=== PATIENT | male | born 1970 | race Caucasian/White ===

== ENCOUNTER 2017-03-01 23:08 | Emergency (ER) | payer OTHER ==
[~2017-03-01] VITALS: Ht 182.9 cm; Wt 131.5 kg
[~2017-03-01 23:08] MED LIST: MULT-506 PO; OXYC-57 PO; VITACAP26 PO
[2017-03-01 23:23] VITALS: TEMP 36.6; Ht 182.9 cm; Wt 131.5 kg
[2017-03-01] MEDS ORDERED: DIAZEPAM 5MG TAB PO STA (23:42)
[2017-03-01] MEDS ORDERED: OXYCODONE HCL IR 5 MG TAB (IMMEDIATE RELEASE) PO STA (23:42)
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
[2017-03-02] MEDS ORDERED: IBUP-103 PO (00:36)
[2017-03-02] MEDS ORDERED: ACET-1256 PO (00:37)
[2017-03-02] MEDS ORDERED: ASCO100061 PO (00:38)
[2017-03-02] MEDS ORDERED: DIAZ-165 PO (01:54)
[2017-03-02] MEDS ORDERED: OXYC1TAB3 PO (01:54)
[2017-03-02] MEDS ORDERED: METH4PAK PO (01:54)
[2017-03-02 02:00] VITALS: BP 124/86; PULSE 82; O2SAT 97
[2017-03-02] MEDS ORDERED: OXYCODONE IR HOME PACK PO ONE (02:00)
--- NOTE | 2017-03-02 06:47 | DIAGNOSTIC IMAGING REPORT ---
RIGHT PELVIS/UNILATERAL HIP 2-3VIEWS CLINICAL HISTORY: Right hip pain. No known trauma. COMPARISON: None FINDINGS: Sacroiliac joints and symphysis pubis are intact. No fracture is identified within the pelvis or the hips. No osseous lesion is identified. Joint spaces for each hip are preserved. There is mild osteophytosis of both hips. There is no evidence for avascular necrosis. IMPRESSION: 1. No acute fracture within the pelvis or hips. 2. Mild osteoarthritis of the hips. Electronically signed by: Myles Snow M.D. 03/02/2017 6:46 AM Dictated Date/Time: 03/02/2017 6:45 AM
--- NOTE | 2017-03-02 06:48 | DIAGNOSTIC IMAGING REPORT ---
LUMBAR SPINE RADIOGRAPHS CLINICAL HISTORY: Right sciatica. COMPARISON: None FINDINGS: Alignment of the lumbar spine is anatomic. There is no acute fracture or suspicious lesion within the lumbar spine. Disc spaces are preserved. There is mild endplate osteophytosis most pronounced at L3-L4. There is mild multilevel facet arthrosis. IMPRESSION: 1. No acute lumbar spine fracture or subluxation. 2. Mild multilevel degenerative disc disease and facet arthrosis of the lumbar spine. Electronically signed by: Myles Snow M.D. 03/02/2017 6:47 AM Dictated Date/Time: 03/02/2017 6:46 AM
== END 2017-03-02 02:00 | disposition home or self-care (01) ==
LOC: C.EDB 23:10 → C.EDC 03-02 02:00
DX: M25.551 Pain in right hip (principal); X58.XXXA Exposure to other specified factors, initial encounter; F17.210 Nicotine dependence, cigarettes, uncomplicated; Z79.899 Other long term (current) drug therapy

== ENCOUNTER → 2017-03-21 | Outpatient (CLI) | payer BC ==
[~2017-03-21] MED LIST changes: +ACET-1256 PO; +ASCO100061 PO; +DIAZ-165 PO; +IBUP-103 PO; -MULT-506 PO; -OXYC-57 PO; +OXYC1TAB3 PO; -VITACAP26 PO
--- NOTE | 2017-03-21 15:09 | DIAGNOSTIC IMAGING REPORT ---
LUMBAR SPINE W/O CONTRAST CLINICAL HISTORY: 47 years-old Male presenting with SCIATICA, back and right leg pain, unable to walk per Drive, history of fall 7 -- 8 years ago. TECHNIQUE: Multisequence, multiplanar MR imaging of the lumbar spine was performed without the use of intravenous contrast. IV contrast: None. COMPARISON: Plain radiographs of the lumbar spine performed on 03/01/2017. FINDINGS: Localizer images: Unremarkable. Normal lumbar lordosis. T1 hyperintense, T2 hyperintense round lesion in the L1 vertebral body consistent with benign hemangioma. Bone marrow signal intensity otherwise normal. Vertebral bodies maintain normal height and alignment. The vertebral disc spaces preserved. Minimal disc bulge noted at L3-4 and L4-5 which primarily efface the neural foramina resulting in moderate bilateral neural foraminal narrowing at L3-4 and severe bilateral at L4-5. Mass effect on the exiting nerve roots noted at these levels. Facet arthropathy is also noted at L3-4 and L4-5 with fluid in the right L4-5 facet joint. No significant bony edema is present. Minimal paraspinal inflammatory change surrounding the facet joint. Additionally, there is a focal 1.2 cm fluid collection in the paraspinal soft tissues at the level of L5-S1 which extends inferior from the right L4-5 zygapophyseal joint. Spinal cord ends in good position at L1. Cauda equina normal. IMPRESSION: Multilevel degenerative change focused at L3-4 and L4-5. Fluid within the right L4-5 facet joint with an associated fluid collection emanating from the joint, consistent with a synovial cyst. No bony edema to suggest infection. Associated paraspinal muscular edema, also degenerative in etiology. Moderate bilateral neural foraminal narrowing at L3-4 and severe at L4-5. Electronically signed by: Zohaib Johnston M.D. 03/21/2017 3:08 PM Dictated Date/Time: 03/21/2017 2:59 PM
== END | disposition home or self-care (01) ==
LOC: C.MRI 14:11
PROVIDERS: ATTEND Orthopaedic Surgery Orthopaedic Surgery of the Spine
DX: M51.26 Other intervertebral disc displacement, lumbar region (principal); M54.9 Dorsalgia, unspecified